=== PATIENT | female | born 1940 | race Caucasian/White ===

== ENCOUNTER 2016-10-22 12:18 | Observation (INO) | payer MEDICARE ==
--- NOTE | 2016-10-22 12:39 | ED ---
General Adult HPI - General Chief complaint: Chest Pain Stated complaint: SOB Time Seen by Provider: 10/22/16 12:32 Source: patient, RN notes reviewed, old records reviewed Mode of arrival: wheelchair Limitations: no limitations - History of Present Illness Initial comments: This is a 76-year-old female ER for evaluation of chest pain. Anterior chest pain. Chest pain rating her left arm. Patient states she been having episodic chest pain for about a week but today is here more. Mild diaphoresis no shortness of breath or patient history of high blood pressure cholesterol and diabetes, no history of heart disease, no prior history of heart attack. Patient has no fevers no cough congestion or travel history. No change in medications. Denies any sick contacts. Patient states chest pain is episodic at this time is improved - Related Data Home Medications Medication Instructions Recorded Confirmed Aspirin 81 mg PO DAILY 10/22/16 10/22/16 Calcium Carbonate [Calcium] 600 mg PO DAILY 10/22/16 10/22/16 Cyanocobalamin [Vitamin B-12] 500 mcg PO DAILY 10/22/16 10/22/16 Famotidine [Pepcid] 20 mg PO BID 10/22/16 10/22/16 Multivitamins, Thera [Multivitamin 1 tab PO DAILY 10/22/16 10/22/16 (formulary)] Pyridoxine HCl (Vitamin B6) 100 mg PO DAILY 10/22/16 10/22/16 [Vitamin B-6] Simvastatin 20 mg PO HS 10/22/16 10/22/16 Travoprost [Travatan Z 0.004%] 1 drop BOTH EYES HS 10/22/16 10/22/16 Vitamin E (Dl,Tocopheryl Acet) 400 unit PO DAILY 10/22/16 10/22/16 [Vitamin E] cycloSPORINE [Restasis] 1 drop BOTH EYES BID 10/22/16 10/22/16 metFORMIN HCL [Metformin HCl] 500 mg PO BID 10/22/16 10/22/16 Allergies Allergy/AdvReac Type Severity Reaction Status Date / Time Penicillins Allergy Rash/Hives Verified 10/22/16 13:49 Review of Systems ROS Statement: Those systems with pertinent positive or pertinent negative responses have been documented in the HPI. ROS Other: All systems not noted in ROS Statement are negative. 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 Past Psychological History: No Psychological Hx Reported Smoking Status: Never smoker Past Alcohol Use History: None Reported Past Drug Use History: None Reported General Exam Limitations: no limitations General appearance: alert, in no apparent distress Head exam: Present: atraumatic, normocephalic, normal inspection Eye exam: Present: normal appearance, PERRL, EOMI. Absent: scleral icterus, conjunctival injection, periorbital swelling ENT exam: Present: normal exam, mucous membranes moist Neck exam: Present: normal inspection. Absent: tenderness, meningismus, lymphadenopathy Respiratory exam: Present: normal lung sounds bilaterally. Absent: respiratory distress, wheezes, rales, rhonchi, stridor Cardiovascular Exam: Present: regular rate, normal rhythm, normal heart sounds. Absent: systolic murmur, diastolic murmur, rubs, gallop, clicks GI/Abdominal exam: Present: soft, normal bowel sounds. Absent: distended, tenderness, guarding, rebound, rigid Extremities exam: Present: normal inspection, full ROM, normal capillary refill. Absent: tenderness, pedal edema, joint swelling, calf tenderness Back exam: Present: normal inspection Neurological exam: Present: alert, oriented X3, CN II-XII intact Psychiatric exam: Present: normal affect, normal mood Skin exam: Present: warm, dry, intact, normal color. Absent: rash Course Vital Signs 10/22/16 10/22/16 10/22/16 12:20 13:08 13:13 Temperature 99.3 F Pulse Rate 87 80 Pulse Rate [ 82 [employer] Control ] Respiratory 18 16 Rate Blood Pressure 184/104 149/69 O2 Sat by Pulse 96 96 Oximetry 10/22/16 14:09 Temperature Pulse Rate 76 Pulse Rate [ [employer] Control ] Respiratory Rate Blood Pressure 154/71 O2 Sat by Pulse 98 Oximetry - Reevaluation(s) Reevaluation #1: 10/22/16 14:37 Patient still has episodic chest pain throughout emergency department stay EKG Findings - EKG Comments: EKG Findings:: EKG shows normal sinus rhythm rate of 75, SC 152, QRS 78, QTC 451 Medical Decision Making - Medical Decision Making 76 female ER for reevaluation chest pain, positive cardiac risk factors including high blood pressure cholesterol and diabetes, patient be admitted for cardiac observation - Lab Data Result diagrams: 10/22/16 13:12 10/22/16 13:12 Lab Results 10/22/16 10/22/16 10/22/16 Range/Units 13:12 13:12 13:12 WBC 5.8 (3.8-10.6) k/uL RBC 4.80 (3.80-5.40) m/uL Hgb 14.3 (11.4-16.0) gm/dL Hct 42.8 (34.0-46.0) % MCV 89.2 (80.0-100.0) fL MCH 29.7 (25.0-35.0) pg MCHC 33.3 (31.0-37.0) g/dL RDW 13.3 (11.5-15.5) % Plt Count 208 (150-450) k/uL Neutrophils % 62 % Lymphocytes % 29 % Monocytes % 5 % Eosinophils % 2 % Basophils % 1 % Neutrophils # 3.6 (1.3-7.7) k/uL Lymphocytes # 1.7 (1.0-4.8) k/uL Monocytes # 0.3 (0-1.0) k/uL Eosinophils # 0.1 (0-0.7) k/uL Basophils # 0.0 (0-0.2) k/uL PT (9.0-12.0) sec INR (<1.1) APTT (22.0-30.0) sec Sodium 144 (137-145) mmol/L Potassium 4.1 (3.5-5.1) mmol/L Chloride 104 (98-107) mmol/L Carbon Dioxide 28 (22-30) mmol/L Anion Gap 12 mmol/L BUN 14 (7-17) mg/dL Creatinine 0.72 (0.52-1.04) mg/dL Est GFR (MDRD) Af Amer >60 (>60 ml/min/1.73 sqM) Est GFR (MDRD) Non-Af >60 (>60 ml/min/1.73 sqM) Glucose 103 H (74-99) mg/dL Calcium 10.1 (8.4-10.2) mg/dL Magnesium 1.7 (1.6-2.3) mg/dL Total Bilirubin 0.8 (0.2-1.3) mg/dL AST 26 (14-36) U/L ALT 28 (9-52) U/L Alkaline Phosphatase 78 (38-126) U/L Total Creatine Kinase 48 (30-135) U/L CK-MB (CK-2) 0.8 (0.0-2.4) ng/mL CK-MB (CK-2) Rel Index 1.7 Troponin I <0.012 (0.000-0.034) ng/mL Total Protein 7.3 (6.3-8.2) g/dL Albumin 4.4 (3.5-5.0) g/dL Lipase 146 (23-300) U/L 10/22/16 Range/Units 13:12 WBC (3.8-10.6) k/uL RBC (3.80-5.40) m/uL Hgb (11.4-16.0) gm/dL Hct (34.0-46.0) % MCV (80.0-100.0) fL MCH (25.0-35.0) pg MCHC (31.0-37.0) g/dL RDW (11.5-15.5) % Plt Count (150-450) k/uL Neutrophils % % Lymphocytes % % Monocytes % % Eosinophils % % Basophils % % Neutrophils # (1.3-7.7) k/uL Lymphocytes # (1.0-4.8) k/uL Monocytes # (0-1.0) k/uL Eosinophils # (0-0.7) k/uL Basophils # (0-0.2) k/uL PT 10.7 (9.0-12.0) sec INR 1.1 (<1.1) APTT 23.0 (22.0-30.0) sec Sodium (137-145) mmol/L Potassium (3.5-5.1) mmol/L Chloride (98-107) mmol/L Carbon Dioxide (22-30) mmol/L Anion Gap mmol/L BUN (7-17) mg/dL Creatinine (0.52-1.04) mg/dL Est GFR (MDRD) Af Amer (>60 ml/min/1.73 sqM) Est GFR (MDRD) Non-Af (>60 ml/min/1.73 sqM) Glucose (74-99) mg/dL Calcium (8.4-10.2) mg/dL Magnesium (1.6-2.3) mg/dL Total Bilirubin (0.2-1.3) mg/dL AST (14-36) U/L ALT (9-52) U/L Alkaline Phosphatase (38-126) U/L Total Creatine Kinase (30-135) U/L CK-MB (CK-2) (0.0-2.4) ng/mL CK-MB (CK-2) Rel Index Troponin I (0.000-0.034) ng/mL Total Protein (6.3-8.2) g/dL Albumin (3.5-5.0) g/dL Lipase (23-300) U/L - Radiology Data Radiology results: report reviewed (Chest x-ray is negative for acute disease), image reviewed Critical Care Time Critical Care Time: Yes Total Critical Care Time: 31 Disposition Clinical Impression: Chest pain Disposition: ADMITTED IP TO THIS [facility] Condition: Undetermined Instructions: Chest Pain (ED) Referrals: Nonstaff,Physician [Primary Care Provider] - 1-2 days
[2016-10-22] MEDS ORDERED: ASPIRIN 81 MG CHEW PO STA (12:41)
[2016-10-22] MEDS ORDERED: NITROGLYCERIN SL TABS 0.4 MG TAB SUBLINGUAL PRN (12:41)
[2016-10-22 13:26] LABS: Basophils % (A) 1 %; CH 30.6; CHCM 34.5; Eosinophils # (A) 0.1 k/uL (0-0.7); Eosinophils % (A) 2 %; HCT 42.8 % (34.0-46.0); HGB 14.3 gm/dL (11.4-16.0); Luc % (Auto) 2; Lymphocytes # (A) 1.7 k/uL (1.0-4.8); Lymphocytes % (A) 29 %; MCH 29.7 pg (25.0-35.0); MCHC 33.3 g/dL (31.0-37.0); MCV 89.2 fL (80.0-100.0); Mean Platelet Volume 6.7; Monocytes # (A) 0.3 k/uL (0-1.0); Monocytes % (A) 5 %; Neutrophils # (A) 3.6 k/uL (1.3-7.7); Neutrophils % (A) 62 %; RDW 13.3 % (11.5-15.5); WBC 5.8 k/uL (3.8-10.6); WBC (Perox) 5.69
[2016-10-22 13:35] LABS: INR 1.1 (<1.1); Prothrombin Time 10.7 sec (9.0-12.0)
[2016-10-22 13:36] LABS: ALT 28 U/L (9-52); AST 26 U/L (14-36); Alkaline Phosphatase 78 U/L (38-126); Anion Gap 12 mmol/L; Blood Urea Nitrogen 14 mg/dL (7-17); Calcium 10.1 mg/dL (8.4-10.2); Carbon Dioxide 28 mmol/L (22-30); Chloride 104 mmol/L (98-107); Glucose 103 mg/dL (74-99); Magnesium 1.7 mg/dL (1.6-2.3); Non-African American GFR(MDRD) >60 (>60 ml/min/1.73 sqM); Potassium 4.1 mmol/L (3.5-5.1); Sodium 144 mmol/L (137-145); Total Bilirubin 0.8 mg/dL (0.2-1.3); Total Protein 7.3 g/dL (6.3-8.2)
--- NOTE | 2016-10-22 13:36 | XR ---
EXAMINATION TYPE: XR chest 2V DATE OF EXAM: 10/22/2016 COMPARISON: NONE HISTORY: Chest and left arm pain. TECHNIQUE: Frontal and lateral views of the chest are obtained. FINDINGS: There is no focal air space opacity, pleural effusion, or pneumothorax seen. The cardiac silhouette size is within normal limits. There is atherosclerotic change seen in thoracic aorta. Exag gerated spinal curvature is noted. IMPRESSION: No acute cardiopulmonary process.
[2016-10-22 13:47] LABS: Creatine Kinase 48 U/L (30-135)
[2016-10-22 14:00] LABS: Creatine Kinase MB 0.8 ng/mL (0.0-2.4); Troponin I <0.012 ng/mL (0.000-0.034)
[2016-10-22 17:00] LABS: Glucose,Whole Blood 218 mg/dL (75-99)
[2016-10-22 19:45] LABS: Creatine Kinase 41 U/L (30-135)
[2016-10-22 19:59] LABS: Creatine Kinase MB 0.6 ng/mL (0.0-2.4); Troponin I <0.012 ng/mL (0.000-0.034)
[2016-10-22] MEDS: cycloSPORINE 0.05% OPHTH 0.4 ML DROPERETTE BOTH EYES SCH (20:25)
[2016-10-22] MEDS: FAMOTIDINE 20 MG TAB PO SCH (20:25)
[2016-10-22 20:53] LABS: Glucose,Whole Blood 153 mg/dL (75-99)
[2016-10-22] MEDS ORDERED: LATANOPROST 0.005% OPHTH DROPS 2.5 ML BTL BOTH EYES SCH (21:00)
[2016-10-22] MEDS ORDERED: ATORVASTATIN 10 MG TAB PO SCH (21:00)
[2016-10-22 22:33] VITALS: RESP 18
[2016-10-23 02:02] LABS: Creatine Kinase 30 U/L (30-135)
[2016-10-23 02:06] LABS: Creatine Kinase MB 0.6 ng/mL (0.0-2.4); Troponin I <0.012 ng/mL (0.000-0.034)
[2016-10-23 03:24] LABS: Hemoglobin A1C 7.3 % (4.2-6.1)
[2016-10-23 05:21] LABS: Cholesterol 152 mg/dL (<200); HDL Cholesterol 56 mg/dL (40-60); Triglycerides 166 mg/dL (<150)
[2016-10-23 06:53] LABS: Glucose,Whole Blood 131 mg/dL (75-99)
--- NOTE | 2016-10-23 07:27 | HP ---
DATE OF ADMISSION: 10/22/2016 CHIEF COMPLAINT: A 76-year-old white female admitted for chest pain, left arm pain, anterior chest pain radiating down left arm. Has had this pain for a week. She states maybe it has been at night for the last 2 nights. Pain down her left arm. ( ) sleep apnea, she has had sleep apnea machine for 3 years old and may not be working and pain is possibly causing pain at night. Denies any cough, congestion, shortness of breath. She had some left arm tightness in the ER but is now resolved. HOME MEDICATIONS: 1. Aspirin. 2. Pepcid. 3. Simvastatin. 4. Travatan ophthalmologic drops. 5. Restasis. 6. Metformin 500 b.i.d. ALLERGIES: PENICILLIN. Fourteen-point review of systems negative except as mentioned in HPI. PAST MEDICAL HISTORY: Diabetes mellitus, sleep apnea, and CPAP, BiPAP, tonsillectomy, tubal ligation. SOCIAL HISTORY: No smoking. No alcohol illicit drugs. PHYSICAL EXAMINATION: VITAL SIGNS: Stable, afebrile. CARDIOVASCULAR: S1 and S2. LUNGS: Transmitted upper airway sounds. HEMATOLOGIC: Negative Homans. PSYCHIATRIC: Fair mood and affect. NEUROLOGIC: Alert and oriented x3. Ophthalmologic: Pupils equal, round and react to light and accommodation. NEUROLOGIC: Alert and oriented x3. VASCULAR: Normal dorsalis pedis, posterior tibial and radial pulses. Ophthalmologic: Pupils equal, and reactive to light and accommodation. Temperature 99, pulse 87, respiratory rate 16 to 18, blood pressure is 140s to 180s over 69 to 104. EKG sinus rhythm. ( ) 103, Sodium 144, potassium 4.1 white count 5.8. Troponin so far negative. Liver enzymes normal. Mortgage Coordinator consulted. IMPRESSION: 1. Atypical chest pain. 2. Diabetes mellitus. 3. Hypertension. Continue home medications. 4. Sleep apnea. Continue home medications. Follow up in next 24 to 48 hours, after cardiology rules out for heart attack. Possibly a stress test will be done. Sleep apnea will be better adjusted with medicine.
[2016-10-23] MEDS: cycloSPORINE 0.05% OPHTH 0.4 ML DROPERETTE BOTH EYES SCH (08:17)
[2016-10-23] MEDS ORDERED: ASPIRIN 325 MG TAB PO SCH (09:00)
[2016-10-23] MEDS ORDERED: ATORVASTATIN 80 MG TAB PO SCH (09:00)
--- NOTE | 2016-10-23 09:10 | CONS ---
DATE OF CONSULTATION: Mrs. Arenas is a 76-year-old female with history of hyperlipidemia and diabetes mellitus who was visiting from out of town and presented with symptoms of arm discomfort. Her discomfort occurred when she woke up, but during the day she was active without any symptoms. She has no prior documented history of cardiac disease. She is reasonably active physically, has no exertional chest discomfort. She has no tightness in the chest when she is active. She has no significant dyspnea. No dizziness. No palpitation. No syncope. No PND. No orthopnea. She had a similar finding a few years ago and at that time was diagnosed with obstructive sleep apnea. Her coronary risk factors are positive for hyperlipidemia and diabetes. She is a nonsmoker. Her blood pressure has been stable in the past. Her medications at home include metformin 500 mg twice a day, simvastatin 20 mg daily, Pepcid, vitamin D, calcium, vitamin B and Travatan. REVIEW OF SYSTEMS: RESPIRATORY SYSTEM: She has no recent wheezing. No cough. No history of documented obstructive lung disease. GI SYSTEM: No recent GI bleeding. No peptic ulcer disease. SYSTEM: No dysuria or hematuria. NERVOUS SYSTEM: No history of stroke or seizure. PHYSICAL EXAMINATION: A 76-year-old female, alert, oriented, in no apparent distress. Blood pressure 134/60 with the heart rate in the 60s. HEAD: Normocephalic. EYES: Sclerae anicteric. NECK: Good upstroke. No bruit. No jugular venous distention. LUNGS: Clear to auscultation. HEART: Regular rate and rhythm. S1, S2, no S3 with systolic murmur at the base. No diastolic murmur. No rub. ABDOMEN: Soft, nontender. EXTREMITIES: No edema. Lab data revealed troponin less than 0.012 for 3 samples. BUN and creatinine 14 and 0.72. Cholesterol of 152, LDL of 63. TSH 0.581. Hemoglobin of 14.3. Chest x-ray shows no evidence of acute infiltrate. EKG reveals a sinus mechanism with a right bundle branch block. IMPRESSION: 1. Chest discomfort and arm discomfort, has atypical feature for ischemic heart disease in a patient with a history of diabetes and hyperlipidemia. 2. History of diabetes. 3. Hyperlipidemia. 4. Obstructive sleep apnea. RECOMMENDATION: I have recommended to proceed with a stress echocardiogram and transthoracic echo to further evaluate her status and guide her treatment. Depending on the results of testing, further recommendation will be made. Thank you for this consult. We will follow with you.
--- NOTE | 2016-10-23 11:04 | ECHOF ---
Referral Reason:cp MEASUREMENTS -------- HEIGHT: 162.6 cm WEIGHT: 67.6 kg BP: 134/63 IVSd: 1.4 cm (0.6 - 1.1) LVIDd: 3.4 cm (3.9 - 5.3) LVPWd: 1.3 cm (0.6 - 1.1) IVSs: 1.5 cm LVIDs: 2.0 cm LVPWs: 1.8 cm LAESV Index (A-L): 24.89 ml/m Ao Diam: 3.1 cm (2.0 - 3.7) AV Cusp: 2.0 cm (1.5 - 2.6) LA Diam: 3.4 cm (2.7 - 3.8) MV EXCURSION: 11.106 mm (> 18.000) MV EF SLOPE: 63 mm/s (70 - 150) EPSS: 1.2 cm MV E Wild: 0.95 m/s MV DecT: 265 ms MV A Wild: 0.96 m/s MV E/A Ratio: 0.99 FINDINGS -------- Sinus rhythm. This was a technically good study. There is mild concentric left ventricular hypertrophy. Overall left ventricular systolic function is normal with, an EF between 55 - 60 %. The diastolic filling pattern is normal for the age of the patient 15.76. The right ventricle is normal in size and function. Normal LA size by volume 22+/-6 ml/m2. The right atrium is normal in size. Aortic valve is trileaflet and is mildly thickened. The mitral valve leaflets are mildly thickened. Moderate mitral regurgitation is present , predominately a posteriorly directed jet. Mild tricuspid regurgitation present. The right ventricular systolic pressure, as measured by Doppler, is {RVSP}. Pulmonic valve appears structurally normal. The aortic root size is normal. Normal inferior vena cava with normal inspiratory collapse consistent with estimated right atrial pressure of 5 mmHg. The pericardium is normal. CONCLUSIONS -------- 1. Sinus rhythm. 2. The mitral valve leaflets are mildly thickened. 3. Moderate mitral regurgitation is present. 4. , predominately a posteriorly directed jet. 5. Mild tricuspid regurgitation present. 6. The right ventricular systolic pressure, as measured by Doppler, is {RVSP}. 7. Pulmonic valve appears structurally normal. 8. The aortic root size is normal. 9. Normal inferior vena cava with normal inspiratory collapse consistent with estimated right atrial pressure of 5 mmHg. 10. The pericardium is normal. 11. This was a technically good study. 12. There is mild concentric left ventricular hypertrophy. 13. Overall left ventricular systolic function is normal with, an EF between 55 - 60 %. 14. The diastolic filling pattern is normal for the age of the patient 15.76 15. The right ventricle is normal in size and function. 16. Normal LA size by volume 22+/-6 ml/m2. 17. The right atrium is normal in size. 18. Aortic valve is trileaflet and is mildly thickened. PROP MAKER: Carla Phan RDCS
[2016-10-23] MEDS ORDERED: MULTIVITAMINS, THERA 1 EACH TAB PO SCH (12:00)
[2016-10-23 12:34] LABS: Glucose,Whole Blood 142 mg/dL (75-99)
[2016-10-23] MEDS: FAMOTIDINE 20 MG TAB PO SCH (12:37)
[2016-10-23 14:27] VITALS: BP 114/51; PULSE 73; TEMP 97.9
--- NOTE | 2016-10-23 15:02 | P.DS ---
Providers Date of admission: 10/22/16 12:41 Expected date of discharge: 10/23/16 Attending physician: Steven Bennett Consults: 10/22/16 12:41 Consult Physician Urgent Consulting Provider: Lisa Villareal Consult Reason/Comments: cp Do you want consulting provider notified?: Yes Primary care physician: Physician Nonstaff Hospital Course: 76-year-old female presented on day admission to the emergency room with chief complaint of having chest discomfort radiating down the left arm. Patient stated that she's had this pain on and off for about a week. She states that she does have a history of sleep apnea. She states that she has had an episode in the past with the machine was not working it did cause left arm pain. Given the above-mentioned symptoms the patient did present to the emergency room to be evaluated. Patient does state that she is appear visiting and lives in [facility] which is near [place]. Patient was admitted to the services of the attending and a cardiology consultation was requested. As mentioned the patient had similar findings a few years ago that time was diagnosed with obstructive sleep apnea. Patient states CPAP machine greater than 3-4 years old. Chest protocol initiated cardiac enzymes 3 sets were negative. Patient did undergo dobutamine stress echo which showed no evidence of any acute findings. Patient had an echocardiogram done that showed left ventricular systolic function normal with an EF between 55 and 60% patient had no further episodes and was felt to be clinically stable and appropriate proceed with a discharge to home Impression discharge diagnosis Present on admission chest pain atypical features History of obstructive sleep apnea with CPAP therapy Hyperlipidemia Type 2 diabetes non-insulin The above dictated assessment and findings were discussed with dr bennett . Impression and the plan of care have been dictated as directed. Deja Moore nurse practitioner acting as a scribe for dr bennett Patient Condition at Discharge: Undetermined Plan - Discharge Summary New Discharge Prescriptions: Continue Aspirin 81 mg PO DAILY Famotidine [Pepcid] 20 mg PO BID Simvastatin 20 mg PO HS Vitamin E (Dl,Tocopheryl Acet) [Vitamin E] 400 unit PO DAILY Pyridoxine HCl (Vitamin B6) [Vitamin B-6] 100 mg PO DAILY Multivitamins, Thera [Multivitamin (formulary)] 1 tab PO DAILY Cyanocobalamin [Vitamin B-12] 500 mcg PO DAILY Calcium Carbonate [Calcium] 600 mg PO DAILY metFORMIN HCL [Metformin HCl] 500 mg PO BID cycloSPORINE [Restasis] 1 drop BOTH EYES BID Travoprost [Travatan Z 0.004%] 1 drop BOTH EYES HS Discharge Medication List Aspirin 81 mg PO DAILY 10/22/16 [History] Calcium Carbonate [Calcium] 600 mg PO DAILY 10/22/16 [History] Cyanocobalamin [Vitamin B-12] 500 mcg PO DAILY 10/22/16 [History] Famotidine [Pepcid] 20 mg PO BID 10/22/16 [History] Multivitamins, Thera [Multivitamin (formulary)] 1 tab PO DAILY 10/22/16 [History ] Pyridoxine HCl (Vitamin B6) [Vitamin B-6] 100 mg PO DAILY 10/22/16 [History] Simvastatin 20 mg PO HS 10/22/16 [History] Travoprost [Travatan Z 0.004%] 1 drop BOTH EYES HS 10/22/16 [History] Vitamin E (Dl,Tocopheryl Acet) [Vitamin E] 400 unit PO DAILY 10/22/16 [History] cycloSPORINE [Restasis] 1 drop BOTH EYES BID 10/22/16 [History] metFORMIN HCL [Metformin HCl] 500 mg PO BID 10/22/16 [History] Follow up Appointment(s)/Referral(s): Nonstaff,Physician [Primary Care Provider] - 1-2 days Patient Instructions/Handouts: Chest Pain (ED) Activity/Diet/Wound Care/Special Instructions: Patient is to follow-up with her primary care provider in the community that the patient lives in Discharge Disposition: HOME SELF-CARE
--- NOTE | 2016-10-24 12:12 | ECHOS ---
DATE OF SERVICE: 10/23/2016 AGE: 76Y SEX: F HT: 64 WT: 149 lbs. Protocol Tom: X Others: Stress Echo Stage: I Dur. of Exercise: 3 minutes *Heart Rate Blood Pressure *Rest: 85 Rest: 131/68 * *Max. Achieved: 136 Maximum BP: 166/55 85% PMHR: 123 100% PMHR: 145 *METS: 4.4 INDICATIONS: Chest pain. MEDICATIONS: Patient was exercised for a total period of 3 minutes. Peak heart rate of 136 was achieved. Maximum blood pressure of 166/55 mmHg was noted. Resting EKG shows normal sinus rhythm with a QRS morphology suggestive of right bundle branch block pattern is noted. No ST segment depression suggestive of ischemia is noted. The baseline echocardiographic images reveal a normal left ventricular chamber size with normal left ventricular systolic function. In the immediate postexercise period, normal increase in the wall thickness and contractility is noted. FINAL IMPRESSION: 1. This stress echocardiographic study is negative for stress-induced ischemia. 2. Patient's exercise tolerance is below average. 3. Patient did not complain of any chest pain during the test.
== END 2016-10-23 15:40 | disposition home or self-care (01) ==
LOC: EC 12:18 → 3OBS 12:41
PROVIDERS: ADMIT Family Medicine; ATTEND Family Medicine
DX: R07.89 Other chest pain (principal); E11.9 Type 2 diabetes mellitus without complications; I10 Essential (primary) hypertension; E78.5 Hyperlipidemia, unspecified; G47.33 Obstructive sleep apnea (adult) (pediatric); Z79.82 Long term (current) use of aspirin; Z79.899 Other long term (current) drug therapy; Z79.84 Long term (current) use of oral hypoglycemic drugs; Z88.0 Allergy status to penicillin; Z99.89 Dependence on other enabling machines and devices
CPT/HCPCS: 36415; 93005; 93017; 93306; 93350; 85379; 80061; 80053; 84443; 83036; 82550 ×2; 82553 ×2; 83690; 83735; 84484 ×2; 85025; 85610; 85730; 71020; 99291; G0378 ×2